=== PATIENT | male | born 2000 | race Caucasian/White ===

== ENCOUNTER 2023-05-07 03:21 | Emergency (ER) | payer OTHER ==
[~2023-05-07] VITALS: Ht 175 cm; Wt 65.0 kg
[2023-05-07 03:35] VITALS: BP 130/99
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
[2023-05-07] MEDS: Tetanus/Diphtheria/Pertussis (Acell) ADULT Vaccine 0.5 ML IM ONE ×2 (03:43→03:45)
== END 2023-05-07 03:57 | disposition home or self-care (01) ==
LOC: ER FS 03:24
DX: S01.112A Laceration without foreign body of left eyelid and periocular area, initial encounter (principal); V48.5XXA Car driver injured in noncollision transport accident in traffic accident, initial encounter; Y92.410 Unspecified street and highway as the place of occurrence of the external cause
CPT/HCPCS: 90715